=== PATIENT | male | born 1975 ===

== ENCOUNTER 2018-11-11 11:44 | Emergency (ER) | payer BC ==
[2018-11-11 11:59] VITALS: BP 129/89
--- NOTE | 2018-11-11 12:33 | UC ---
Lower Extremity/Ankle HPI - HPI Summary HPI Summary: 43-year-old male who was walking down some steps late Sunday night when he twisted his left ankle. - History of Current Complaint Chief Complaint: UCLowerExtremity Stated Complaint: ANKLE INJURY Time Seen by Provider: 11/11/18 12:30 Hx Obtained From: Patient Onset/Duration: Sudden Onset Severity Initially: Moderate Severity Currently: Moderate Pain Intensity: 6 Aggravating Factor(s): Standing, Ambulation Alleviating Factor(s): Rest Able to Bear Weight: Yes - but with increased pain. - Allergies/Home Medications Allergies/Adverse Reactions: Allergies Allergy/AdvReac Type Severity Reaction Status Date / Time No Known Allergies Allergy Verified 11/11/18 12:00 PMH/Surg Hx/FS Hx/Imm Hx Previously Healthy: Yes GI/ History: Gastroesophageal Reflux - Surgical History Surgical History: None - Family History Known Family History: Positive: Non-Contributory - Social History Occupation: Employed Full-time Alcohol Use: Daily Substance Use Type: None Smoking Status (MU): Current Some Day Smoker Type: Cigarettes Amount Used/How Often: 1 PPW Length of Time of Smoking/Using Tobacco: 20 YEARS Have You Smoked in the Last Year: Yes Review of Systems All Other Systems Reviewed And Are Negative: Yes Skin: Positive: Bruising - Mild bruising and swelling of the left ankle., Other Motor: Positive: Negative Neurovascular: Positive: Negative Musculoskeletal: Positive: Decreased ROM - Henny decreased range of motion due to swelling. Patient states it only hurts when he is standing on it. He has more pain on the lateral malleolus as opposed to the medial area. Is Patient Immunocompromised?: No Physical Exam Triage Information Reviewed: Yes Appearance: Well-Appearing, No Pain Distress, Well-Nourished Vital Signs: Initial Vital Signs Temp 98 F 11/11/18 11:56 Pulse 96 11/11/18 11:56 Resp 16 11/11/18 11:56 BP 129/89 11/11/18 11:56 Pulse Ox 100 11/11/18 11:56 Vital Signs Reviewed: Yes Musculoskeletal: Positive: Strength Intact, ROM Intact, Other: - Knee ligaments are intact with good knee stability. Left ankle is swollen with tenderness on palpation to the lateral ankle. Achilles is intact. Good peripheral pulses neuro sensation capillary refill. The foot itself is nontender. Base of the fifth and first metatarsals are nontender. Neurological Exam: Normal Psychological Exam: Normal Skin: Positive: Other - See above notes. Lower Extremity Course/Dx - Course Course Of Treatment: Left ankle x-ray:COMPARISONS: None relevant available at the time of dictation. VIEWS: 3, Frontal, lateral, and oblique views of the left ankle FINDINGS: BONE DENSITY: Normal. BONES: There is a transverse nondisplaced fracture of the distal fibula with articular extension. JOINTS: There is no arthropathy. . There is a small joint effusion. ALIGNMENT: The mortise is intact. SOFT TISSUES : Unremarkable. OTHER FINDINGS: None. IMPRESSION: NONDISPLACED FRACTURE OF THE DISTAL LEFT FIBULA. A three-inch Baldomero bandage was applied. A cam boot was applied and patient is to be using crutches and nonweightbearing until seen by the orthopedist. No work until cleared by orthopedist. - Differential Dx/Diagnosis Provider Diagnosis: Fracture of left fibula Discharge ED - Sign-Out/Discharge Documenting (check all that apply): Patient Departure All imaging exams completed and their final reports reviewed: Yes - Discharge Plan Condition: Fair Disposition: HOME Patient Education Materials: Ankle Fracture (DC) Forms: *Work Release Referrals: Ana Rosa Martinez MD [Primary Care Provider] - Margo Byrd MD [Medical Doctor] - Additional Instructions: Nonweightbearing until cleared by the orthopedist. Apply ice intermittently over the next 2 days and elevate as much as possible. May take Tylenol every 4 hours for pain. Definite follow-up with the orthopedist in 2 or 3 days, call today to make an appointment. - Billing Disposition and Condition Condition: FAIR Disposition: Home
== END 2018-11-11 13:15 | disposition home or self-care (01) ==
LOC: UCEAST 11:44
DX: S82.832A Other fracture of upper and lower end of left fibula, initial encounter for closed fracture (principal); X50.1XXA Overexertion from prolonged static or awkward postures, initial encounter; Y93.01 Activity, walking, marching and hiking; Y92.9 Unspecified place or not applicable; F17.210 Nicotine dependence, cigarettes, uncomplicated
CPT/HCPCS: 99203; G0463